=== PATIENT | female | born 1965 | race Caucasian/White ===

== ENCOUNTER → 2017-03-03 | Outpatient (CLI) | payer BC ==
[~2017-03-03] VITALS: Ht 162.6 cm; Wt 81.6 kg
[~2017-03-03] MED LIST: ASPIR-LOW81 M1 PO; BEE WITH C1 EACH PO; CO Q-10100 MG PO; FISH OIL SOFTG1 EACH PO; ONE DAILY WOME1 EAC2 PO; PRILOSEC40 MG PO; PROZAC20 MG PO; TRICOR145 MG PO; VITAMIN D31000 UNI2 PO
[2017-03-03 09:18] LABS: INTER. NORMALIZED RATIO 1.2; PROTHROMBIN TIME 12.9 SEC (10.2-12.9)
[2017-03-03 09:21] LABS: PTT 34.1 SEC (25-37)
[2017-03-03 09:33] LABS: HEMATOCRIT 50.2 % (36.0-46.0); MCHC 31.5 G/DL (30.0-36.0); MCV 82.7 FL (83-99); MEAN PLAT.VOLUME 10.7 uM^3 (9.5-12.4); PLATELET COUNT 770 K/uL (156-360); RBC DIS.WIDTH-CV 18.4 % (11.8-14.6); RBC DIS.WIDTH-SD 52.7 % (39-53); RED BLOOD COUNT 6.07 M/uL (3.80-5.20); WHITE BLOOD COUNT 7.4 K/uL (4.1-10.2)
[2017-03-03 13:35] LABS: ABS NEUTROPHIL COUNT 3.3; ANISOCYTOSIS 1+; EOSINOPHIL ABS CT 0.3; INSTRUMENT ABS NEUTROPHIL CT 3.8 K/uL; PLAT.SUFFICIENCY INCREASED
[2017-03-06 15:12] LABS: Flow Number of Markers 22 (()); Flow Spec Viability 96 % (()); Flow Specimen Type BONE MARROW (())
== END | disposition home or self-care (01) ==
LOC: OPR 08:25 → EDSTATUS 09:00 → OPR 09:00
PROVIDERS: Internal Medicine Medical Oncology
DX: D75.89 Other specified diseases of blood and blood-forming organs (principal); K21.9 Gastro-esophageal reflux disease without esophagitis; E78.4 Other hyperlipidemia; D50.9 Iron deficiency anemia, unspecified; E66.9 Obesity, unspecified; Z79.82 Long term (current) use of aspirin
CPT/HCPCS: 77012; 85007; 85025; 85610; 85730; 85999; 88184 90; 88185 90; 88189 90; J3010